=== PATIENT | female | born 1975 | race Two or more races ===

== ENCOUNTER 2021-06-17 23:51 | Emergency (ER) | payer OTHER ==
[~2021-06-17] VITALS: Ht 157.5 cm; Wt 68.0 kg
== END 2021-06-18 02:54 ==
LOC: ER 23:51
DX: R55 Syncope and collapse (principal); F41.8 Other specified anxiety disorders

== ENCOUNTER 2023-11-25 09:05 | Emergency (ER) | payer OTHER ==
[~2023-11-25] VITALS: Ht 167.6 cm; Wt 61.2 kg
[2023-11-25] MEDS ORDERED: PRILOSEC10 MG PO (09:36)
[2023-11-25] MEDS ORDERED: PEPCID AC10 MG (09:36)
[2023-11-25] MEDS ORDERED: 0.9 % SODIUM CHLORIDE 1,000 ML IV STA (09:47)
[2023-11-25] MEDS ORDERED: KETOROLAC TROMETHAMINE 30 MG VIAL ONE (09:52)
[2023-11-25] MEDS ORDERED: METHYLPREDNISOLONE SOD SUCC 40 MG VIAL ONE (09:52)
[2023-11-25] MEDS ORDERED: KETOROLAC TROMETHAMINE 30 MG VIAL IV ONE (10:00)
[2023-11-25] MEDS ORDERED: METHYLPREDNISOLONE SOD SUCC 40 MG VIAL IV ONE (10:00)
[2023-11-25 10:24] LABS: HEMATOCRIT 41.8 % (36.0-45.00); HEMOGLOBIN 13.9 g/dL (12.0-15.00); MEAN CELL VOLUME 86.5 fL (80.00-100.00); MEAN CORPUSCULAR HEMOGLOBIN 28.8 pg (27.00-32.0); MEAN CORPUSCULAR HGB CONC 33.3 g/dl (32.0-36.0); PLATELET COUNT 257 K/uL (150-450); RED BLOOD COUNT 4.83 M/uL (4.00-6.00); RED CELL DISTRIBUTION WIDTH 13.9 % (11.5-14.5)
[2023-11-25 10:52] LABS: PH,URINE 6.5 (5.0-8.0); URINE APPEARANCE Clear; URINE BILIRRUBIN Negative (NEGATIVE); URINE BLOOD Negative; URINE COLOR Yellow; URINE GLUCOSE Negative (NEGATIVE); URINE KETONE Trace (NEGATIVE); URINE LEUKOCYTE Negative; URINE NITRATE Negative; URINE PROTEIN Negative (NEGATIVE); URINE UROBILINOGEN 0.2 E.U./dl
[2023-11-25 10:53] LABS: URINE BACTERIA 153.7 uL (0.0-1933); URINE EPITHELIAL CELLS 7.7 uL (0.0-38.8); URINE RBC 4.8 uL (0.0-20.8); URINE WBC 6.9 uL (0.0-23.2)
[2023-11-25 11:05] LABS: CREATININE SERUM 0.69 mg/dL (0.55-1.02); GFR 90.81; POTASSIUM 4.2 mEq/L (3.5-5.1)
== END 2023-11-25 14:39 | disposition home or self-care (01) ==
LOC: ER 09:06
PROVIDERS: Emergency Medicine
DX: R10.9 Unspecified abdominal pain (principal); Z88.8 Allergy status to other drugs, medicaments and biological substances